=== PATIENT | female | born 1945 | race Caucasian/White ===

== ENCOUNTER → 2016-08-09 | Outpatient (CLI) | payer MEDICARE | END | disposition home or self-care (01) | LOC: GMAJ 10:15 | PROVIDERS: ATTEND Family Medicine | DX: I10 Essential (primary) hypertension (principal) ==

== ENCOUNTER → 2017-07-08 | Outpatient (CLI) | payer MEDICARE ==
--- NOTE | 2017-07-10 16:34 | MAM ---
EXAM DESCRIPTION: 3D Screening BILATERAL : Digital Mammography. CLINICAL HISTORY: 71 years Female ANNUAL SCREENING . No complaints. No family history breast cancer. Postmenopausal. Taking HRT 5 or more years ago.. COMPARISON: 2-D digital screening bilateral study 06/15/2013. No prior reports available. TECHNIQUE: Bilateral CC and MLO projection full-field images, 3-D tomosynthesis digital mammographic technique. Also bilateral synthesized CC/ MLO full-field images. CAD not utilized. FINDINGS: The breast parenchymal density pattern is: Scattered areas of fibroglandular density. No skin thickening or nipple retraction bilateral axillary lymph nodes. Bilateral solitary microcalcifications. No focal, stellate mass or density, focal asymmetry , and no suspicious microcalcifications bilaterally. Stable mammograms compared to prior study, taking into account differences in mammographic technique IMPRESSION: BI-RADS CATEGORY: 2 - BENIGN FINDINGS. FOLLOW UP: Routine digital bilateral screening, one year interval from June 2017. Written communication explaining the IMPRESSION and follow-up, will be mailed to the patient and referring health care provider. According to the [employer], yearly mammograms are recommended starting at age 40 and continuing as long as a woman is in good health. Any breast change noted on a breast self-exam should be reported promptly to the patient's healthcare provider. Breast MRI is recommended for women with an approximately 20-25% or greater lifetime risk of breast cancer, including women with a strong family history of breast or ovarian cancer and women who have been treated for Hodgkin's disease. A negative mammographic report should not delay tissue diagnosis in patients with significant clinical history or physical findings. Extremely dense breast tissue limits the sensitivity of digital mammography. Electronically signed by: Jon Bailon MD 07/10/2017 4:32 PM CDT
== END ==
LOC: MAMMO 11:00
PROVIDERS: ATTEND Family Medicine
DX: Z12.31 Encounter for screening mammogram for malignant neoplasm of breast (principal)

== ENCOUNTER → 2017-10-10 | Outpatient (CLI) | payer MEDICARE | LOC: CT 10:01 | PROVIDERS: ATTEND Family Medicine | DX: J18.1 Lobar pneumonia, unspecified organism (principal) ==

== ENCOUNTER → 2017-10-16 | Outpatient (CLI) | payer MEDICARE ==
--- NOTE | 2017-10-16 12:03 | CT ---
EXAM DESCRIPTION: Chest w/Contrast CLINICAL HISTORY: 71 years, Female, LOBAR PNEUMONIA COMPARISON: Chest x-ray October 01, 2016 TECHNIQUE: Thin-section noncontrast axial CT images are obtained according to our protocol. Reconstructed MPR images are created and reviewed as well. FINDINGS: Lungs: Patchy areas of consolidation are identified in the right middle lobe, upper lingula or anterior segment left upper lobe and posterior segment right upper lobe. Findings may indicate pneumonia. Follow-up is recommended to ensure clearance since some areas have a slightly atypical appearance. Clustered nodules in the anterior segment right upper lobe may be chronic indolent infection as with atypical tuberculosis agent. Somewhat spiculated consolidation is seen in the right middle lobe which should be followed to ensure stability or resolution. Mediastinum: Lymph nodes are normal in size. Normal vascular contours. Heart size is normal with no pericardial effusion. Chest wall/axilla: No mass or adenopathy. Breast tissue appears symmetrical. Lower neck/supraclavicular: No mass or adenopathy. Right thyroid mass measures 4.3 cm extending into the upper thorax. Smaller left thyroid lesion measures 1.0 cm. Sono may be helpful with sono guided biopsy of the largest mass on the right. Upper abdomen: Unremarkable upper abdominal viscera. Coronal and sagittal reformatted images confirm the findings. IMPRESSION: Pulmonary infiltrates most consistent with infectious pneumonia. Follow-up is recommended to ensure complete clearance as discussed above. Bilateral thyroid lesions, the largest on the right measuring 4.3 cm. See above recommendations for further evaluation. This exam was performed according to our departmental dose-optimization program, which includes automated exposure control, adjustment of the mA and/or kV according to patient size and/or use of iterative reconstruction technique. Total DLP equals 455.87 mGycm. Electronically signed by: Pipe Clayton MD 10/16/2017 12:02 PM CDT
== END ==
LOC: CT 10:11
PROVIDERS: ATTEND Family Medicine
DX: J18.1 Lobar pneumonia, unspecified organism (principal)

== ENCOUNTER 2017-10-19 09:59 | Emergency (ER) | payer MEDICARE, OTHER ==
[2017-10-19 10:16] VITALS: BP 127/81; TEMP 98.6; O2SAT 95
--- NOTE | 2017-10-19 10:26 | ED.PDOC ---
History of Present Illness - General Chief Complaint: Bite: Animal/Insect/Human Stated Complaint: insect bite Time Seen by Provider: 10/19/17 10:02 Source: patient Exam Limitations: no limitations - History of Present Illness Initial Comments: the patient is a 71-year-old female presenting secondary to a cellulitis to her left inner thigh present for the last 3 days after an insect bite. She does not what kind of insect it was. She has had some itching and some mild clear drainage from the site. It is approximately 12 cm in diameter on the long axis and a centimeters in diameter on the short axis. There is no obvious underlying abscess. There is an area centrally less than a centimeter in diameter of increased erythema and irritation but again no definite abscess or current drainage. No extending erythema from the sites. No fever. Severity: mild Improving Factors: nothing Worsening Factors: nothing Associated Symptoms: denies symptoms Allergies/Adverse Reactions: Allergies Indomethacin [From Indocin] Allergy (Verified 10/19/17 10:15) Latex Allergy (Verified 10/19/17 10:15) Home Medications: Ambulatory Orders Losartan Potassium [Cozaar] 25 mg PO BID 03/20/14 Pravastatin Sodium 40 mg PO BEDTIME 03/20/14 Atenolol [Tenormin] 50 mg PO BID 10/19/17 Chlorthalidone 12.5 mg PO DAILY 10/19/17 Sulfa/Trimeth 800/160 (Ds) Tab [Bactrim DS Tab] 1 ea PO BID #10 tab 10/19/17 Review of Systems - Review of Systems Constitutional: States: no symptoms reported EENTM: States: no symptoms reported Respiratory: States: no symptoms reported Cardiology: States: no symptoms reported Gastrointestinal/Abdominal: States: no symptoms reported Genitourinary: States: no symptoms reported Musculoskeletal: States: no symptoms reported Skin: States: see HPI Neurological: States: no symptoms reported Endocrine: States: no symptoms reported All other Systems: No Change from Baseline Past Medical History (General) - Patient Medical History Hx Stroke: No Hx Congestive Heart Failure: No Hx Hypertension: Yes Hx Diabetes: No Surgical History: tonsillectomy, Hysterectomy - Vaccination History Hx Influenza Vaccination: No Hx Pneumococcal Vaccination: Yes - Social History Hx Tobacco Use: No Hx Alcohol Use: No Hx Substance Use: No Hx Substance Use Treatment: No Hx Depression: No Family Medical History - Family History Mother Family History: Unknown Physical Exam - Physical Exam General Appearance: Alert, Comfortable, No apparent distress Eye Exam: bilateral normal Ears, Nose, Throat: hearing grossly normal, normal pharynx Neck: full range of motion, supple Respiratory: no respiratory distress, no accessory muscle use Cardiovascular/Chest: normal peripheral pulses, no edema, other - regular rate Peripheral Pulses: radial,right: 2+, radial,left: 2+, dorsalis pedis,right: 2+, dorsalis pedis,left: 2+ Gastrointestinal/Abdominal: soft Rectal Exam: deferred Back Exam: normal inspection Extremity: normal range of motion, no pedal edema, no calf tenderness, normal capillary refill Neurologic: 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 She does need to trace it out with a marker when she gets home and take daily pictures to make sure it is improving over the next couple of weeks. It is possible that the surrounding erythema from the bite site is simply localized reaction to a mildly venomous insect however it is possible this is early bacterial cellulitis superimposed on an insect bite. There is no abscess to drain. The patient be placed on Bactrim twice daily for the next 5 days. ER warnings were given for any significant worsening. She needs to wash it daily with an antibacterial soap and she can apply Neosporin to the Center a couple of times daily. She is to keep previously scheduled follow-up with her primary care doctor. 10/19/17 10:29 Departure - Departure Clinical Impression: Insect bites Qualifiers: Encounter type: initial encounter Qualified Code(s): W57.XXXA - Bitten or stung by nonvenomous insect and other nonvenomous arthropods, initial encounter Cellulitis Qualifiers: Site of cellulitis: extremity Site of cellulitis of extremity: lower extremity Laterality: left Qualified Code(s): L03.116 - Cellulitis of left lower limb Disposition: Discharge to Home or Self Care Condition: Fair Departure Forms: ED Discharge - Pt. Copy, Patient Portal Self Enrollment Diet: regular diet Activity: increase activity as tolerated Referrals: Dann Houston MD [Primary Care Provider] - 1-2 Weeks Prescriptions: Sulfa/Trimeth 800/160 (Ds) Tab [Bactrim DS Tab] 1 ea PO BID #10 tab Home Medications: Ambulatory Orders Losartan Potassium [Cozaar] 25 mg PO BID 03/20/14 Pravastatin Sodium 40 mg PO BEDTIME 03/20/14 Atenolol [Tenormin] 50 mg PO BID 10/19/17 Chlorthalidone 12.5 mg PO DAILY 10/19/17 Sulfa/Trimeth 800/160 (Ds) Tab [Bactrim DS Tab] 1 ea PO BID #10 tab 10/19/17 Additional Instructions: the patient's a 71-year-old female presenting to the emergency room secondary to an insect bite with surrounding erythema to her left inner thigh. She does need to trace it out with a marker when she gets home and take daily pictures to make sure it is improving over the next couple of weeks. It is possible that the surrounding erythema from the bite site is simply localized reaction to a mildly venomous insect however it is possible this is early bacterial cellulitis superimposed on an insect bite. There is no abscess to drain. The patient be placed on Bactrim twice daily for the next 5 days. ER warnings were given for any significant worsening. She needs to wash it daily with an antibacterial soap and she can apply Neosporin to the Center a couple of times daily. She is to keep previously scheduled follow-up with her primary care doctor.
[2017-10-19] MEDS: SULFA/TRIMETH 800/160 (DS) TAB 1 EA TAB PO ONE (10:27)
== END 2017-10-19 10:39 | disposition home or self-care (01) ==
LOC: ER 09:59
DX: S70.362A Insect bite (nonvenomous), left thigh, initial encounter (principal); L03.116 Cellulitis of left lower limb; I10 Essential (primary) hypertension; Z91.040 Latex allergy status; W57.XXXA Bitten or stung by nonvenomous insect and other nonvenomous arthropods, initial encounter; Y92.9 Unspecified place or not applicable

== ENCOUNTER → 2018-07-21 | Outpatient (CLI) | payer OTHER ==
--- NOTE | 2018-07-22 14:39 | MAM ---
EXAM DESCRIPTION: 3D Screening BILATERAL : Digital Mammography. CLINICAL HISTORY: 72 years Female SCREENING . No complaints. No personal or family history of breast cancer. Childbirth. Postmenopausal. HRT 5 or more years ago.. Lifetime risk of developing breast cancer (Tyrer-Cuzick model)(%): 3.0. COMPARISON: Bilateral screening digital breast tomosynthesis 07/08/2017.. No prior reports available. TECHNIQUE: Bilateral CC and MLO projection full-field images, digital tomosynthesis mammographic technique. Bilateral digital 2-D full-field MLO images. and CC images. CAD not available for tomosynthesis or 2-D images. FINDINGS: The breast parenchymal density pattern: Heterogeneously dense breast tissue, which may obscure small masses. No skin thickening or nipple retraction. . Bilateral axillary lymph nodes. Bilateral solitary microcalcifications. No new focal, stellate mass or density, focal asymmetry , and no suspicious microcalcifications bilaterally. Stable mammograms compared to prior study. IMPRESSION: Benign exam. BIRAD CATEGORY: 2 BENIGN FINDINGS. RECOMMENDATIONS: FOLLOW UP: Routine digital bilateral mammographic screening, one year interval from July 2018. Written communication explaining the IMPRESSION and follow-up, will be mailed to the patient and referring health care provider. The FINDINGS and the FOLLOW-UP plan were reviewed in person with the patient after the examination. According to the [employer], yearly mammograms are recommended starting at age 40 and continuing as long as a woman is in good health. Any breast change noted on a breast self-exam should be reported promptly to the patient's healthcare provider. Breast MRI is recommended for women with an approximately 20-25% or greater lifetime risk of breast cancer, including women with a strong family history of breast or ovarian cancer and women who have been treated for Hodgkin's disease. A negative mammographic report should not delay tissue diagnosis in patients with significant clinical history or physical findings. Extremely dense breast tissue limits the sensitivity of digital mammography. Electronically signed by: Jon Bailon MD 07/22/2018 2:36 PM CDT
== END ==
LOC: MAMMO 11:00
PROVIDERS: ATTEND Family Medicine
DX: Z12.31 Encounter for screening mammogram for malignant neoplasm of breast (principal)

== ENCOUNTER → 2018-07-30 | Outpatient (CLI) | payer OTHER | LOC: GMATM 16:52 | PROVIDERS: ATTEND Nurse Practitioner Family | DX: I10 Essential (primary) hypertension (principal); R42 Dizziness and giddiness ==

== ENCOUNTER → 2018-09-23 | Outpatient (CLI) | payer OTHER | LOC: GMAJ 10:43 | PROVIDERS: ATTEND Family Medicine | DX: E04.2 Nontoxic multinodular goiter (principal) ==

== ENCOUNTER → 2018-12-25 | Outpatient (CLI) | payer OTHER | LOC: GMAJ 12:34 | PROVIDERS: ATTEND Family Medicine | DX: E04.1 Nontoxic single thyroid nodule (principal) ==

== ENCOUNTER → 2019-03-15 | Outpatient (CLI) | payer OTHER ==
--- NOTE | 2019-03-15 17:47 | MRI ---
EXAM DESCRIPTION: Lumbar Spine w/o Contrast : Magnetic Resonance Imaging. CLINICAL HISTORY: LUMBAGO WITH SCIATICA UNSPECIFIED SIDE COMPARISON: 3 views lumbar spine 28 July 2013. TECHNIQUE: Multiplanar, multiple standard sequences, non contrast MRI, lumbar spine. FINDINGS: L5-S1: The disc is well visualized on axial T2 series 501, image 3. Moderate endplate reactive changes more to the right of midline in the left with significant disc space loss anterior bulging and spurs. Mild narrowing of the left foramen and moderate narrowing on the right with spurs abutting the exiting L5 nerve. Minimal degenerative changes in the posterior elements, but canal is patent. L4-L5: 2.5 mm grade 1 anterolisthesis. Minimal disc desiccation and tiny posterior bulge. Degenerative facet and ligament hypertrophy with transverse compression of the thecal sac AP canal diameter 8 mm. Moderate bilateral foraminal narrowing abutting the bilateral exiting L4 nerves. L3-L4: Disc desiccation with disc space maintained. No posterior bulging. Minimal degenerative facet and ligament hypertrophy impressing on the lateral thecal sac with AP canal diameter 9 mm. Bilateral mild foraminal narrowing. L2-L3: Disc desiccation minimal anterior reactive changes. No posterior bulging. Mild degenerative changes facet and ligament hypertrophy impressing on the lateral thecal sac with AP canal diameter 10 mm. Bilateral foramina are patent. L1-L2: Anterior and posterior endplate reactive changes with anterior bulging disc and spurs and Schmorl's nodes in the inferior L1 endplate. Minimal broad-based posterior bulging. Minimal degenerative changes in the posterior facets and ligaments with mild right foraminal narrowing and moderate left foraminal narrowing. Previous depression of the L1 superior endplate but no marrow edema in the endplate. This is interpreted to have progressed since the lumbar spine radiographs in 2014. No retropulsion of the superior endplate. T12-L1: Disc desiccation no significant bulging. Disc space widened anteriorly with the depressed L1 endplate. No significant endplate changes inferior T12. No bulging disc. Canal and foramina are patent. Conus terminates just below the disc space. Posterior elements with minimal degenerative hypertrophy.. Minimal mid lumbar XR scoliosis and minimal lumbosacral levoscoliosis. Paravertebral soft tissues paraspinal muscle atrophy.. Distal cord normal signal and caliber. Elongated cauda equina not interpreted to be significant. Otherwise normal marrow signal in the remaining vertebral bodies and the posterior elements. Vertebral bodies are not acutely compressed at any level. IMPRESSION: 1. Canal narrowing mostly due to posterior hypertrophy of the degenerated facets and ligaments. Minimal disc bulging but no herniation. Foraminal narrowing at some levels but no stenosis. 2. Grade 1 anterolisthesis at L4-L5 with mild to moderate central canal stenosis which is multifactorial. 3. Mild central canal stenosis at L3-4 is multifactorial. 4. Borderline mild central canal stenosis at L2-L3 multifactorial. 5. Progressive depression of the superior L1 endplate since the prior lumbar spine radiographs in 2013, but no marrow edema indicates a nonacute process. No endplate retropulsion. Electronically signed by: Jon Bailon MD 03/15/2019 5:46 PM [facility]
== END ==
LOC: MRI 09:00
PROVIDERS: ATTEND Family Medicine
DX: M48.062 Spinal stenosis, lumbar region with neurogenic claudication (principal); M43.16 Spondylolisthesis, lumbar region; M51.16 Intervertebral disc disorders with radiculopathy, lumbar region

== ENCOUNTER → 2019-08-25 | Outpatient (CLI) | payer OTHER ==
--- NOTE | 2019-08-25 21:06 | MAM ---
EXAM DESCRIPTION: 3D Screening BILATERAL : Digital Mammography. CLINICAL HISTORY: 73 years Female ANNUAL SCREENING . No complaints. No personal or family history of breast cancer. Menarche age 10. Childbirth age 34. Menopause age unknown. No HRT. Lifetime risk of developing breast cancer (Tyrer-Cuzick model)(%): 5.3. COMPARISON: Bilateral screening digital breast tomosynthesis June 2018 and June 2017.. TECHNIQUE: Bilateral CC and MLO projection full-field images, digital tomosynthesis mammographic technique. Bilateral digital 2-D full-field MLO images. CAD available for 2-D images. FINDINGS: The breast parenchymal density pattern is: Scattered areas of fibroglandular density. No skin thickening or nipple retraction. Solitary microcalcifications. Right axillary lymph node. No new focal, stellate mass or density, focal asymmetry , and no suspicious microcalcifications bilaterally. Stable mammograms compared to prior study. IMPRESSION: Benign exam. BIRAD CATEGORY: 2 BENIGN FINDINGS. RECOMMENDATIONS: FOLLOW UP: Routine digital bilateral mammographic screening, one year interval from August 2019. Written communication explaining the IMPRESSION and follow-up, will be mailed to the patient and referring health care provider. According to the [employer], yearly mammograms are recommended starting at age 40 and continuing as long as a woman is in good health. Any breast change noted on a breast self-exam should be reported promptly to the patient's healthcare provider. Breast MRI is recommended for women with an approximately 20-25% or greater lifetime risk of breast cancer, including women with a strong family history of breast or ovarian cancer and women who have been treated for Hodgkin's disease. A negative mammographic report should not delay tissue diagnosis in patients with significant clinical history or physical findings. Extremely dense breast tissue limits the sensitivity of digital mammography. Electronically signed by: Jon Bailon MD 08/25/2019 9:04 PM CDT
== END ==
LOC: MAMMO 11:36
PROVIDERS: ATTEND Family Medicine
DX: Z12.31 Encounter for screening mammogram for malignant neoplasm of breast (principal)

== ENCOUNTER 2020-01-10 12:38 | Emergency (ER) | payer OTHER ==
--- NOTE | 2020-01-10 12:49 | ED.PDOC ---
History of Present Illness - General Time Seen by Provider: 01/10/20 12:39 - History of Present Illness Initial Comments: 74 yo Fwith history of HTN, OA comes in with left leg redness and pain. First noticed it this morning, thought it might be chigger bite, but noticed worsening redness so came in for evaluation. Denies fever, n/v/abdominal pain. Otherwise feels well. no recent antibiotics. Allergies/Adverse Reactions: Allergies Aspirin Allergy (Verified 12/10/17 11:56) Indomethacin [From Indocin] Allergy (Verified 10/19/17 10:15) Latex Allergy (Verified 10/19/17 10:15) Home Medications: Ambulatory Orders Losartan Potassium [Cozaar] 25 mg PO BID 03/20/14 Pravastatin Sodium 40 mg PO BEDTIME 03/20/14 Atenolol [Tenormin] 50 mg PO BID 10/19/17 Chlorthalidone 12.5 mg PO DAILY 10/19/17 Sulfa/Trimeth 800/160 (Ds) Tab [Bactrim DS Tab] 1 ea PO BID #10 tab 10/19/17 Cephalexin 500 mg PO QID #28 cap 01/10/20 Review of Systems - Review of Systems Constitutional: Denies: chills, fever EENTM: Denies: blurred vision, throat pain, throat swelling Respiratory: Denies: cough, short of breath Cardiology: Denies: chest pain, palpitations Gastrointestinal/Abdominal: Denies: abdominal pain, nausea, vomiting Genitourinary: Denies: discharge, dysuria, frequency Skin: States: rash Neurological: Denies: headache, numbness, paresthesia, seizure, tingling, tremors, weakness Endocrine: Denies: unexplained weight gain, unexplained weight loss Hematologic/Lymphatic: Denies: blood clots, easy bleeding, easy bruising Past Medical History (General) - Patient Medical History Hx Seizures: No Hx Stroke: No Hx Dementia: No Hx Asthma: No Hx of COPD: No Hx Cardiac Disorders: No Hx Congestive Heart Failure: No Hx Pacemaker: No Hx Hypertension: Yes Hx Thyroid Disease: No Hx Diabetes: No Hx Gastroesophageal Reflux: No Hx Renal Disease: No Hx Cancer: No Hx of HIV: No Hx Hepatitis C: No Hx MRSA: No - Vaccination History Hx Tetanus, Diphtheria Vaccination: No Hx Influenza Vaccination: No Hx Pneumococcal Vaccination: Yes - Social History Hx Tobacco Use: No Hx Chewing Tobacco Use: No Hx Alcohol Use: No Hx Substance Use: No Hx Substance Use Treatment: No Hx Depression: No Hx Physical Abuse: No Hx Emotional Abuse: No Hx Suspected Abuse: No - Female History Patient : No Family Medical History - Family History Mother Family History: Unknown Physical Exam - Physical Exam General Appearance: Alert, Comfortable, No apparent distress, Well Developed, Well Groomed, Well Hydrated, Well Nourished, Other - stable gait Eyes, Ears, Nose, Throat Exam: PERRL/EOMI, normal ENT inspection Neck: non-tender, full range of motion, supple, normal inspection Cardiovascular/Chest: normal peripheral pulses, regular rate, rhythm, no edema, no gallop, no JVD, no murmur Respiratory: chest non-tender, lungs clear, normal breath sounds, no respiratory distress, no accessory muscle use Gastrointestinal/Abdominal: normal bowel sounds, non tender, soft Back Exam: normal inspection Extremity: normal range of motion, non-tender, no pedal edema 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 no induration, no flutuance. Skin Character: erythema, warm Lymphatic: no adenopathy Progress - Progress Progress: 01/10/20 13:04 partial ddx: cellulitis, insect bite, folliculitis. Will give course of keflex for 7 days. If symptoms worsen or don't improve needs to follow up for antibiotics which covers staph such as bactrim or clindamcyin. The data reviewed when caring for this patient included: nurse notes, prior records, etc. The history and assessments from nurses notes were reviewed and considered, and the patient's home medication list was also reviewed and considered. My assessment was discussed with the patient. All questions were answered, and dhr express understanding of my assessment and the plan. She have been instructed to return if their symptoms worsen, and have been asked to follow up with their primary care physician to recheck today's presenting complaint. I have reviewed medication, benefits, alternatives and side effects. Patient decided to proceed with medication.VSS, patient discharged home in stable condition. Megan Shin DO #[id number] Departure - Departure Clinical Impression: Cellulitis Qualifiers: Site of cellulitis: extremity Site of cellulitis of extremity: lower extremity Laterality: left Qualified Code(s): L03.116 - Cellulitis of left lower limb Time of Disposition: 13:00 Disposition: Discharge to Home or Self Care Instructions: Cellulitis (Skin Infection), Adult (DC), Spider Bites Referrals: Dann Houston MD [Primary Care Provider] - 1-2 Days Prescriptions: Cephalexin 500 mg PO QID #28 cap Home Medications: Ambulatory Orders Losartan Potassium [Cozaar] 25 mg PO BID 03/20/14 Pravastatin Sodium 40 mg PO BEDTIME 03/20/14 Atenolol [Tenormin] 50 mg PO BID 10/19/17 Chlorthalidone 12.5 mg PO DAILY 10/19/17 Sulfa/Trimeth 800/160 (Ds) Tab [Bactrim DS Tab] 1 ea PO BID #10 tab 10/19/17 Cephalexin 500 mg PO QID #28 cap 01/10/20
[2020-01-10 13:05] VITALS: BP 164/78; TEMP 96.9; O2SAT 94
== END 2020-01-10 13:19 | disposition home or self-care (01) ==
LOC: ER 12:38
DX: L03.116 Cellulitis of left lower limb (principal); I10 Essential (primary) hypertension; Z79.899 Other long term (current) drug therapy; Z88.6 Allergy status to analgesic agent; Z88.8 Allergy status to other drugs, medicaments and biological substances; Z91.040 Latex allergy status

== ENCOUNTER → 2020-01-10 | Outpatient (CLI) | payer OTHER ==
--- NOTE | 2020-01-11 08:18 | MRI ---
EXAM: Brain w/oContrast CLINICAL HISTORY: DIZZINESS AND GIDDINESS COMPARISON STUDY: None TECHNICAL: Multi-sequence, multiplanar non-contrast MRI images were acquired through the brain. FINDINGS: No acute abnormality on the diffusion weighted scan. There is no finding to suggest an acute territorial infarction. There are minimal periventricular white matter changes suggestive of chronic microvascular disease. There is no intraparenchymal mass or mass effect. Lesion is seen along the left posterior parietal inner table or dura to measure 16 x 9 mm. This lesion is extra-axial and appears calcified and is suggestive of an old meningioma. There is no evidence for hemorrhage. Flow voids are seen within the expected intracranial vessels. Posterior fossa and midline structures are negative. IMPRESSION: 1. MINIMAL PERIVENTRICULAR WHITE MATTER CHANGES WITHOUT ACUTE INTRACRANIAL ABNORMALITY. 2. 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 Electronically signed by: Jayson Graff MD 01/11/2020 8:16 AM CDT
== END ==
LOC: MRI 14:01
PROVIDERS: ATTEND Family Medicine
DX: R90.82 White matter disease, unspecified (principal); G93.9 Disorder of brain, unspecified; R42 Dizziness and giddiness

== ENCOUNTER → 2020-01-14 | Outpatient (CLI) | payer OTHER ==
--- NOTE | 2020-01-14 15:24 | MRI ---
EXAM DESCRIPTION: Shoulder,Left CLINICAL HISTORY: 74 years, Female, ROTATOR CUFF SYNDROME COMPARISON: Shoulder radiograph 08/26/2019 TECHNIQUE: MRI of the left shoulder was performed with multiplanar multi sequence imaging without intravenous contrast. FINDINGS: Rotator tendons: Supraspinatus mild tendinosis with low to intermediate grade partial-thickness articular surface tear at the anterior insertional and mild bursal surface tear at the anterior critical zone fibers. Infraspinatus mild tendinosis without focal tear. The subscapularis and teres minor tendons are intact. Rotator muscles: No rotator cuff muscle atrophy. Glenoid labrum: Limited evaluation of the labrum demonstrate mild circumferential degenerative tearing which may be slightly more pronounced along the posterior superior labrum. Acromion: The acromion morphology is type II. Mild acromioclavicular joint osteoarthrosis with mild capsular hypertrophy. Small lateral subacromial enthesophytes. Bone and joints: Moderate glenohumeral joint osteoarthrosis with patchy areas of high grade/full-thickness cartilage loss involving the superior humeral head and inferior glenoid articular surfaces. Inferior humeral head small marginal osteophytosis. No focal bone marrow contusion or fracture. Secondary synovial osteochondromatosis with two intra-articular bodies within the axillary pouch measuring up to 7 mm. Biceps tendon: Normal course and morphology of the biceps tendon long head within the bicipital groove. The biceps labral anchor appears intact. Soft tissues: No solid or cystic mass is seen. Mild intramuscular edema along the periphery of the infraspinatus and subscapularis muscle bellies represent low-grade muscle strains. Mild subacromial/subdeltoid bursitis. IMPRESSION: 1. Mild supraspinatus and infraspinatus tendinosis. Supraspinatus tendon low to intermediate grade partial-thickness tears. No full-thickness rotator cuff tear or tendon retraction. 2. Mild grade 1 strains of the supraspinatus and infraspinatus muscles. 3. Moderate glenohumeral joint osteoarthrosis with patchy areas of full-thickness cartilage loss. 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 4. Circumferential degenerative glenoid labral tearing is more pronounced along the posterior superior labrum. 5. Mild acromioclavicular joint osteoarthrosis with small lateral subacromial enthesophyte can be a cause for external impingement on the rotator cuff. 6. Mild subacromial/subdeltoid bursitis. Electronically signed by: Yuniel Tolentino DO 01/14/2020 3:22 PM CDT
== END ==
LOC: MRI 09:02
PROVIDERS: ATTEND Orthopaedic Surgery
DX: S46.812A Strain of other muscles, fascia and tendons at shoulder and upper arm level, left arm, initial encounter (principal); S43.432A Superior glenoid labrum lesion of left shoulder, initial encounter; M75.92 Shoulder lesion, unspecified, left shoulder; M19.012 Primary osteoarthritis, left shoulder; M75.52 Bursitis of left shoulder; M67.912 Unspecified disorder of synovium and tendon, left shoulder

== ENCOUNTER → 2020-04-24 | Outpatient (CLI) | payer OTHER, SELFPAY ==
--- NOTE | 2020-04-25 09:56 | CT ---
EXAM DESCRIPTION: Cardiac Calcium Scoring Screen: Computed Tomography. CLINICAL HISTORY: Coronary Artery Calcium Scoring. COMPARISON: None. TECHNIQUE: Spiral-axial scans at 2.5 X 0.4 mm intervals through the coronary arteries without IV contrast. Special algorithm was used, and cardiac gating. No reconstructions. Total Exam DLP: 129 mGy-cm. This exam was performed according to our departmental CT dose-optimization program which includes automated exposure control, adjustment of the mA and/or kV according to patient size and/or use of iterative reconstruction technique; to reduce radiation dose to as low as reasonably achievable (ALARA). Some images may have been skipped or repeated due to the heart rhythm or respiration. FINDINGS: The patient has a total Agatston calcium score of 0. This places the patient in the 0 percentile in comparison to a group of patients asymptomatic for coronary artery disease with the same age and gender. This means that no females of age is greater than 75 have calcium scores lower than the patient. Atherosclerotic calcification in the aortic arch. The included mediastinum, bilateral roosevelt, and included chayito-hilar lung are unremarkable. Included thoracic vertebra showing endplate spurs anterior and anterior- right. IMPRESSION: 1. Total coronary artery calcium score of 0. 0 percentile for age and gender. 2. The included mediastinum, lung, and chayito-hilar areas are unremarkable. Electronically signed by: Jon Bailon MD 04/25/2020 9:55 AM [employer]
== END ==
LOC: CT 13:26
PROVIDERS: ATTEND Family Medicine
DX: R42 Dizziness and giddiness (principal)